=== PATIENT | female | born 1970 | race Caucasian/White ===

== ENCOUNTER 2019-08-19 08:32 | Emergency (ER) | payer BC, OTHER ==
[2019-08-19 08:42] VITALS: TEMP 98.5; BMI 25.0
--- NOTE | 2019-08-19 08:45 | PDOC ---
History of Present Illness - General Chief Complaint: Pain Stated Complaint: LEFT LOWER QUADRANT PAIN RADIATES TO BACK Time Seen by Provider: 08/19/19 08:42 - History of Present Illness Initial Comments: 08/19/19 08:57 Chief complaint: Abdominal pain HPI: Patient developed left flank and left lower quadrant pain this morning after awakening. There is also been nausea and retching. She has a history of left renal colic and recent lithotripsy. Review of systems: She admits to dark urine and dysuria. Denies chest pain, shortness of breath, hematemesis, melena, bloody stool, visual or focal neurologic symptoms, unsteadiness of gait, vaginal bleeding or discharge. Past medical history: Urinary tract calculi, high blood pressure. Mild asthma. Begun on prednisone yesterday by primary physician. Also on losartan Social/family history reviewed and noncontributory. No tobacco drugs or alcohol. Stable home and family. Active and employed. Physical exam: Alert and oriented well-developed well-nourished significant pain suggestive of renal colic. Cooperative Afebrile, vital signs normal except for mildly elevated blood pressure No pallor or icterus. PERRLA, ENT clear Neck supple without bruit mass or nodes Chest clear with full breath sounds bilaterally CV S1-S2 normal without murmur rub or gallop pulses full and symmetric no JVD or edema no bruits Abdomen nondistended. Bowel sounds normal. Soft without mass tenderness organomegaly. No CVAT Neurological intact Skin clear, no rash, adequate turgor and wet mucous membranes Extremities no CCE Impression: Left flank and left lower quadrant pain in a woman with recent lithotripsy and history of left renal colic, probably recurrent. Other possibilities are diverticulitis, colitis, gastroenteritis, ruptured ovarian cyst, with without ectopic Plan: Urinalysis, urine , CBC and chemistries, IV fluids, antiemetics, analgesics, and further evaluation and treatment depending on results of studies. Past History - Past Medical History Allergies/Adverse Reactions: Allergies Allergy/AdvReac Type Severity Reaction Status Date / Time No Known Allergies Allergy Verified 08/19/19 08:33 Home Medications: Ambulatory Orders Ibuprofen 800 mg PO Q4HWA PRN #20 tablet 08/19/19 Losartan Potassium 1 tab PO DAILY 08/19/19 Prednisone [Deltasone] 20 mg PO DAILY 08/19/19 Asthma: Yes COPD: No HTN: Yes Kidney Stones: Yes - Surgical History Cholecystectomy: Yes - Psycho Social/Smoking Cessation Hx Smoking History: Never smoked Have you smoked in the past 12 months: No Information on smoking cessation initiated: No Hx Alcohol Use: No Drug/Substance Use Hx: No Substance Use Type: None *Physical Exam - Vital Signs Last Vital Signs Temp Pulse Resp BP Pulse Ox 98.5 F 77 16 175/97 H 100 08/19/19 08:33 08/19/19 08:33 08/19/19 08:33 08/19/19 08:33 08/19/19 08:33 ED Treatment Course - LABORATORY CBC & Chemistry Diagram: 08/19/19 09:00 08/19/19 09:00 Medical Decision Making - Medical Decision Making 08/19/19 11:23 White blood count is 18,000. Remainder of blood work without significant abnormalities. Urinalysis shows 3+ blood but only 2-5 red cells, 0-2 white cells, no nitrites. No suggestion of superimposed infection Ultrasound shows mild left hydronephrosis, nonobstructing stones in the kidneys. The elevated white count is most likely due to pain, but other intra-abdominal infection is possible. No current lab results or results of imaging studies were available despite review of the patient's records online. 08/19/19 11:24 08/19/19 12:01 CT reveals multiple nonobstructing stones in the left kidney, a 6.3 mm stone in the distal ureter with hydronephrosis and hydroureter, ass well as a stone in the bladder. Patient's pain is controlled. She is resting comfortably. She will be discharged on pain medication as needed. She and her were instructed to return to the emergency room if the pain is severe and uncontrolled, otherwise follow-up with her urologist within 1 week. Also return if there is fever/chills, dysuria that could be a sign of infection. Urine culture from today is pending, but no antibiotics are prescribed immediately, since the urinalysis has no white cells and is nitrite negative. Patient ambulatory and discharged with , in no severe pain or other distress, to follow-up as directed 08/19/19 12:09 Discharge - Discharge Information Problems reviewed: Yes Clinical Impression/Diagnosis: Renal colic on left side Condition: Improved Disposition: HOME - Admission No - Additional Discharge Information Prescriptions: Ibuprofen 800 mg PO Q4HWA PRN #20 tablet PRN Reason: Pain - Follow up/Referral - Patient Discharge Instructions Patient Printed Discharge Instructions: DI for Kidney Stones Additional Instructions: Return to the emergency room if pain is severe and uncontrolled with medication Return to the emergency room if there is fever or chills, increased back pain, increased pain or difficulty with urination. This may be a sign of infection developing. At present, there is no evidence of infection If symptoms resolve, see your urologist within 1 week for follow-up. - Post Discharge Activity
[2019-08-19] MEDS ORDERED: ONDANSETRON 4 MG/2 ML VIAL IVPB ONE (08:47)
[2019-08-19] MEDS ORDERED: KETOROLAC TROMETHAMINE 30 MG/1 ML VIAL IVPUSH ONE (08:47)
[2019-08-19] MEDS ORDERED: SODIUM CHLORIDE 1,000 ML IV STA (08:47)
[2019-08-19] MEDS ORDERED: ONDANSETRON 4 MG/2 ML VIAL ONE (09:00)
[2019-08-19] MEDS ORDERED: KETOROLAC TROMETHAMINE 30 MG/1 ML VIAL ONE (09:00)
[2019-08-19 09:18] LABS: BASO % 0.4 % (0-2.0); EOS % 0.6 % (0-4.5); HEMATOCRIT 42.1 % (32.4-45.2); HEMOGLOBIN 13.8 GM/dl (10.7-15.3); LYMPH % 9.5 % (8-40); MCH 28.7 pg (25.7-33.7); MCHC 32.8 g/dl (32.0-36.0); MEAN CELL VOLUME 87.6 fl (80-96); MEAN PLT VOLUME 9.5 fl (7.5-11.1); MONO % 3.6 % (3.8-10.2); NEUT % 85.9 % (42.8-82.8); PLATELET COUNT 351 K/MM3 (134-434); WHITE BLOOD COUNT 18.2 K/mm3 (4.0-10.8)
[2019-08-19 09:24] LABS: ALBUMIN 4.7 g/dl (3.4-5.0); BILIRUBIN,TOTAL 0.8 mg/dl (0.2-1); CALCIUM 10.1 mg/dl (8.5-10); CREATININE 0.8 mg/dl (0.55-1.3); POTASSIUM 3.9 mmol/L (3.5-5.1); TOT PROT 8.3 g/dl (6.4-8.2)
[2019-08-19 09:38] LABS: CALCIUM OXALATE CRYSTALS FEW /hpf (NONE SEEN); EPITHELIAL CELLS FEW /hpf
[2019-08-19 12:15] VITALS: BP 164/107; PULSE 80
== END 2019-08-19 12:24 | disposition home or self-care (01) ==
LOC: FER 08:32
PROC: 3E0333Z Introduction of Anti-inflammatory into Peripheral Vein, Percutaneous Approach (ICD-10-PCS; principal; 2019-08-19)
PROC: 3E0337Z Introduction of Electrolytic and Water Balance Substance into Peripheral Vein, Percutaneous Approach (ICD-10-PCS; 2019-08-19)
PROC: 3E033GC Introduction of Other Therapeutic Substance into Peripheral Vein, Percutaneous Approach (ICD-10-PCS; 2019-08-19)
DX: N13.2 Hydronephrosis with renal and ureteral calculous obstruction (principal); I10 Essential (primary) hypertension
CPT/HCPCS: 36415; 74176-TC; 76775-TC; 80053; 81003; 81015; 84703; 85025; 87086; 99284-25; J7030

== ENCOUNTER 2020-07-19 17:06 | Emergency (ER) | payer OTHER ==
--- OUTSIDE RECORDS SUMMARY | 2020-07-19 17:14 | XMS ---
:1970 Author Organization [facility] Support Name Relationship Address Phone ST. KALA DAVILA Unavailable [address] [place] [address] MIGUEL COOPER [address] [facility] [place] [address] Re-disclosure Warning The records that you are about to access may contain information from federally- assisted alcohol or drug abuse programs. If such information is present, then the following federally mandated warning applies: This information has been disclosed to you from records protected by federal confidentiality rules (42 CFR part 2). The federal rules prohibit you from making any further disclosure of this information unless further disclosure is expressly permitted by the written consent of the person to whom it pertains or as otherwise permitted by 42 CFR part 2. A general authorization for the release of medical or other information is NOT sufficient for this purpose. The Federal rules restrict any use of the information to criminally investigate or prosecute any alcohol or drug abuse patient.The records that you are about to access may contain highly sensitive health information, the redisclosure of which is protected by Article 27-F of the [facility] Public Health law. If you continue you may haveaccess to information: Regarding HIV / AIDS; Provided by facilities licensed or operated by the [facility] Office of Mental Health; or Provided by the [facility] Office for People With Developmental Disabilities. If such information is present, then the following [facility] mandated warning applies: This information has been disclosed to you from confidential records which are protected by state law. State law prohibits you from making any further disclosure of this information without the specific written consent of the person to whom it pertains, or as otherwise permitted by law. Any unauthorized further disclosure in violation of state law may result in a fine or group home sentence or both. A general authorization for the release of medical or other information is NOT sufficient authorization for further disclosure. Insurance Providers Payer name Policy type Policy ID Covered Covered green party's Policy P oliver / Coverage green party ID relationship to Gonzalez Inf ormation type gonzalez SELF PAY SP INSURANCE [facility] [id number] [place] [id number] PLANS EPO [id number] S [id number]
[2020-07-19 17:22] VITALS: BP 141/96; PULSE 87; TEMP 98.8; BMI 27.2
--- NOTE | 2020-07-19 17:30 | PDOC ---
History of Present Illness - General History Source: Patient Exam Limitations: No Limitations - History of Present Illness Initial Comments: 07/19/20 17:47 50F with PMH of asthma, HTN, kidney stones s/p ureteral stent, uterine fibroids s/p hysterectomy, and choleycystectomy presents to the ED with left sided abd pain. It started 1 week prior, and was seen by PCP - labs and UA wnl at that time. She was sent to her urologist, and CT abdomen was done yesterday, reported to be normal. She was referred to GI, who suggested colonoscopy at the end of the month. Today the pt developed nausea with vomiting, and PCP referred her to the ED. The pain radiates to left back and constant. Denies diarrhea, constipation, hematochezia, or dysuria. PMH: as in HPI SH: as in HPI Meds: losartan, albuterol Allergies: NKDA Tob/Etoh/Rec drugs: neg x3 Urologist: Dr. Kurt GOMEZ GENERAL/CONSTITUTIONAL: No fever or chills. No weakness. CARDIOVASCULAR: No chest pain or shortness of breath RESPIRATORY: No cough, wheezing, or hemoptysis. GASTROINTESTINAL: +nausea, vomiting; no diarrhea or constipation GENITOURINARY: No dysuria, frequency, or change in urination. ENDOCRINE: No increased thirst. No abnormal weight change ALLERGIC/IMMUNOLOGIC: No hives or skin allergy. PE GENERAL: AOx3; no apparent distress HEART: RRR, normal S1/S2, no murmurs, rubs, or gallops. Peripheral pulses 2+ and equal bilaterally. LUNGS: No distress, speaks full sentences, CTA bilaterally ABDOMEN: Soft, nondistended. Minimal tenderness to palpation at LLQ. No guarding, no rebound. No masses. No CVA tenderness. EXTREMITIES: Normal inspection, Normal range of motion, no edema. SKIN: Warm, Dry, normal turgor. No rashes or lesions noted Assessment and Plan 1. ovarian cyst/torsion 2. kidney stone Ankush Davila, PGY1 Emergency Medicine <Ankush Davlia - Last Filed: 07/19/20 18:38> <Nereida yLles - Last Filed: 07/19/20 19:02> - General Chief Complaint: Pain Stated Complaint: LEFT ABDOMINAL PAIN WITH NAUSEA Time Seen by Provider: 07/19/20 17:30 Past History - Medical History Asthma: Yes COPD: No HTN: Yes Kidney Stones: Yes - Surgical History Cholecystectomy: Yes - Reproductive History Is Patient Now?: No - Psycho-Social/Smoking History Smoking History: Never smoked Have you smoked in the past 12 months: No Information on smoking cessation initiated: No - Substance Abuse Hx (Audit-C & DAST Scrn) How often the patient has a drink containing alcohol: Never Score: In Men: 4 or > Positive; In Women: 3 or > Positive: 0 Screen Result (Pos requires Nsg. Audit-10AR): Negative In the last yr the pt used illegal drug/Rx for NonMed reason: No Score: Yes response is considered Positive: 0 Screen Result (Positive result requires Nsg. DAST-10): Negative <Ankush Davila - Last Filed: 07/19/20 18:38> <Nereida Lyles - Last Filed: 07/19/20 19:02> - Medical History Allergies/Adverse Reactions: Allergies Allergy/AdvReac Type Severity Reaction Status Date / Time No Known Allergies Allergy Verified 07/19/20 17:09 Home Medications: Ambulatory Orders Losartan Potassium 1 tab PO DAILY 08/19/19 Ibuprofen 600 mg PO QID PRN #20 tablet 07/19/20 Nitrofurantoin Monohyd/M-Cryst [Macrobid -] 100 mg PO BID #10 capsule 07/19/20 *Physical Exam - Vital Signs Last Vital Signs Temp Pulse Resp BP Pulse Ox 98.8 F 87 16 141/96 99 07/19/20 17:08 07/19/20 17:08 07/19/20 17:08 07/19/20 17:08 07/19/20 17:08 <Ankush Davila - Last Filed: 07/19/20 18:38> - Vital Signs Last Vital Signs Temp Pulse Resp BP Pulse Ox 98.8 F 87 16 141/96 99 07/19/20 17:08 07/19/20 17:08 07/19/20 17:08 07/19/20 17:08 07/19/20 17:08 <Nereida Lyles - Last Filed: 07/19/20 19:02> ED Treatment Course - LABORATORY CBC & Chemistry Diagram: 07/19/20 17:50 10/08/20 17:50 <Ankush Davila - Last Filed: 07/19/20 18:38> - LABORATORY CBC & Chemistry Diagram: 07/19/20 17:50 07/19/20 17:50 - ADDITIONAL ORDERS Additional order review: Laboratory Results 07/19/20 07/19/20 17:50 17:50 Sodium 137 Potassium 4.0 Chloride 100 Carbon Dioxide 26 Anion Gap 11 BUN 14.0 Creatinine 0.7 Est GFR (CKD-EPI)AfAm 117.09 Est GFR (CKD-EPI)NonAf 101.02 Random Glucose 152 H Calcium 9.4 Total Bilirubin 0.9 AST 30 ALT 28 Alkaline Phosphatase 96 Total Protein 8.1 Albumin 4.6 Urine Color Yellow Urine Appearance Clear Urine pH 6.0 Urine Protein Negative Urine Glucose (UA) Negative Urine Ketones Negative Urine Blood Negative Urine Nitrite Negative Urine Bilirubin Negative Urine Urobilinogen 0.2 Ur Leukocyte Esterase 2+ Urine RBC 0-2 Urine WBC >100 Ur Transition Epith Cell Few Urine Bacteria Moderate 07/19/20 17:50 RBC 4.97 MCV 89.0 MCHC 32.6 RDW 12.3 MPV 9.1 Neutrophils % 75.2 Lymphocytes % 17.3 Monocytes % 3.8 Eosinophils % 3.3 Basophils % 0.4 - Medications Given in the ED: ED Medications Discontinued Medications Generic Name Dose Route Start Last Admin Trade Name Demi PRN Reason Stop Dose Admin Acetaminophen 1,000 mg 07/19/20 17:45 07/19/20 18:00 Tylenol - PO 07/19/20 17:46 1,000 mg ONCE ONE Administration Ondansetron HCl 4 mg 07/19/20 17:45 07/19/20 18:01 Zofran Injection IVPUSH 07/19/20 17:46 4 mg ONCE ONE Administration <Nereida Lyles - Last Filed: 07/19/20 19:02> Medical Decision Making - Medical Decision Making 07/19/20 18:07 50F presents to ED with L sided abd pain radiating to left back, with nausea/vomiting today. On exam, she had mild LLQ abdominal pain. -> will get TVUS to eval for ovarian cyst/torsion (pt has hx/o left ovarian cyst), will get kidney US to eval for hydronephrosis. 07/19/20 18:36 CBC and CMP unremarkable. +leukocyte esterase in UA. 07/19/20 18:37 Pending kidney and transvaginal ultrasound. Signed out to night team. <Ankush Davila - Last Filed: 07/19/20 18:38> Discharge - Discharge Information Problems reviewed: Yes <Ankush Davila - Last Filed: 07/19/20 18:38> - Discharge Information Problems reviewed: Yes - Admission No <Nereida Lyles - Last Filed: 07/19/20 19:02> - Discharge Information Clinical Impression/Diagnosis: Abdominal pain Qualifiers: Abdominal location: unspecified location Qualified Code(s): R10.9 - Unspecified abdominal pain Ovarian cyst Qualifiers: Laterality: left Qualified Code(s): N83.202 - Unspecified ovarian cyst, left side UTI (urinary tract infection) Qualifiers: Urinary tract infection type: site unspecified Hematuria presence: without hematuria Qualified Code(s): N39.0 - Urinary tract infection, site not specified Condition: Stable Disposition: HOME - Additional Discharge Information Prescriptions: Ibuprofen 600 mg PO QID PRN #20 tablet PRN Reason: Pain Nitrofurantoin Monohyd/M-Cryst [Macrobid -] 100 mg PO BID #10 capsule - Follow up/Referral Referrals: [facility] [Provider Group] Kinjal Quick MD [Staff Physician] - Ronna Cardona MD [Staff Physician] - Arleen Blakely MD [Staff Physician] - - Patient Discharge Instructions Patient Printed Discharge Instructions: DI for Urinary Tract Infection (UTI), DI for Ovarian Cyst Additional Instructions: 1) Please follow-up with your primary care doctor in the next 1-2 days. Please call tomorrow for for any urgent issues. Also see a specialist wound care for your ovarian cyst. You also have an uncomplicated urinary tract infection, follow-up on urine culture. You will be treated with antibiotics. 2) You were given a copy of the tests performed today. Please bring the results with you and review them with your primary care doctor. Your laboratory / imaging results were normal, have a 2.3 x 2 cm left-sided ovarian cyst and urinary tract infection Your other laboratory results are within normal limits. 3) If you have any worsening of symptoms or any other concerns please return to the ED immediately. Return if worsening symptoms including fevers, headache, vomiting, visual or hearing disturbances, abdominal pain, chest pain, shortness of breath, syncope, dehydration, inability to take things by mouth/vomiting, altered mental status, vaginal bleeding or worsening concerning symptoms. 4) Please continue taking your home medications as directed. your medications on discharge include_Macrobid twice a day x5 days for the urinary tract infection. side effects may include upset stomach, abdominal pain, vomiting, or diarrhea. do not drink alcohol with your medications. You can take ibuprofen or Tylenol as needed for the pain. Stay well hydrated and rest adequately. Make an appointment. If you cannot follow-up with your primary care doctor please return to the ED
[2020-07-19] MEDS ORDERED: ONDANSETRON 4 MG/2 ML VIAL IVPUSH ONE (17:45)
[2020-07-19] MEDS ORDERED: ACETAMINOPHEN 500 MG TABLET (FP) PO ONE (17:45)
[2020-07-19] MEDS ORDERED: ONDANSETRON 4 MG/2 ML VIAL ONE (17:56)
[2020-07-19] MEDS ORDERED: ACETAMINOPHEN 500 MG TABLET (FP) ONE (17:56)
[2020-07-19 18:24] LABS: BASO % 0.4 % (0-2.0); EOS % 3.3 % (0-4.5); HEMATOCRIT 44.3 % (32.4-45.2); HEMOGLOBIN 14.4 GM/dl (10.7-15.3); LYMPH % 17.3 % (8-40); MCHC 32.6 g/dl (32.0-36.0); MEAN PLT VOLUME 9.1 fl (7.5-11.1); MONO % 3.8 % (3.8-10.2); NEUT % 75.2 % (42.8-82.8); PLATELET COUNT 307 K/MM3 (134-434); RBC 4.97 M/mm3 (3.60-5.2); RDW 12.3 % (11.6-15.6); WHITE BLOOD COUNT 8.5 K/mm3 (4.0-10.8)
--- NOTE | 2020-07-19 18:27 | PDOC ---
Attending Attestation - Resident Resident Name: Ankush Davila - ED Attending Attestation I have performed the following: I have examined & evaluated the patient, The case was reviewed & discussed with the resident, I agree w/resident's findings & plan - HPI HPI: 07/19/20 18:25 50F with PMH of asthma, HTN, kidney stones s/p ureteral stent, uterine fibroids s/p hysterectomy, and choleycystectomy presents to the ED with left sided abd pain. It started 1 week prior, and was seen by PCP - labs and UA wnl at that time. She was sent to her urologist, and CT abdomen was done yesterday, reported to be normal. She was referred to GI, who suggested colonoscopy at the end of the month. Today the pt developed nausea with vomiting, and PCP referred her to the ED. The pain radiates to left back and constant. Denies diarrhea, constipation, hematochezia, or dysuria. - Physicial Exam PE: 07/19/20 18:25 Agree with the resident's HPI and PE as documented in the electronic medical record. NAD, well appearing, EOMI, PERRL, nl conjunctiva, anicteric; neck supple. lungs clear, RRR, abdomen soft left lower quadrant/pelvic tenderness, no rebound, guarding. Back nontender. No CVA tenderness. JURADO x4, no focal neuro deficits. No peripheral edema. normal color for ethnicity, WWP. - Medical Decision Making 07/19/20 18:25 Vital Signs Temp Pulse Resp BP Pulse Ox 98.8 F 87 16 141/96 99 07/19/20 17:08 07/19/20 17:08 07/19/20 17:08 07/19/20 17:08 07/19/20 17:08 DDx abdominal pain: Renal colic, biliary colic, metabolic/electrolyte derangements. GERD, PUD, esophageal spasm, pancreatitis, hepatitis, constipation, colitis, gastroenteritis, cholecystitis, UTI, pyelonephritis, ileus, SBO, medication side effect, hernia, appendicitis, diverticulitis. msk strain, mesenteric adenitis, psoas abscess. - no RLQ pain to suggest appy. does not appear septic or obstructed - more left pelvic tenderness/LLQ. no CVAT no bleeding had CT done about 2 days ago with urologist, reportedly unremarkable for stones she had also seen her PMD within the week, unremarkable labs/UA, referred to urology and GI for further management, yet to see GI for colonoscopy. vitals reviewed wnl, reassuring will get labs and lytes, UA ultrasound kidneys and pelvis to eval for hydro, given her h/o kidney stones and ovarian/cyst/torsion, also has h/o left ovarian cyst. 07/19/20 18:31 UA prelim with 2+ leuk esterase - f/u urine culture, can start with macrobid for uncomplicated cystitis. labs and lytes are wnl, reassuring US with Left ovarian cyst measuring 2.3 x 2 cm, without intraluminal debris, nodularity or septation. No evidence of torsion. Patient clinically does not present with ovarian torsion. No hydronephrosis with the kidneys Kos unlikely to be renal colic there may be small nonobstructing left sided renal calculi. Pt to be discharged in stable condition. Patient made aware of clinical impression, treatment recommendations and disposition plan, return precautions discussed (including but not limited to new or persistent/worsening symptoms, pain, fevers, or signs of infection, chest pain, respiratory distress, inability to tolerate oral intake, dehydration, syncope, or neurologic changes). Follow up with PMD and/or GI specialist as recommended, follow up information provided, take medications as instructed for duration of time. continue with supportive care, avoid triggers and precipitants. All questions answered to patient's satisfaction and expressed understanding and comfort with this. At the time of discharge, the patient is alert, clinically improved, tolerating po and verbalizes understanding of instructions, satisfied with the care received and felt comfortable with the plan. Patient does not suffer from an acute life- threatening medical condition at this time and is safe for outpatient follow- up. 07/19/20 18:55 07/19/20 18:57 07/19/20 19:01 07/19/20 19:02 Discharge - Discharge Information Problems reviewed: Yes Clinical Impression/Diagnosis: Abdominal pain Qualifiers: Abdominal location: unspecified location Qualified Code(s): R10.9 - Unspecified abdominal pain Ovarian cyst Qualifiers: Laterality: left Qualified Code(s): N83.202 - Unspecified ovarian cyst, left side UTI (urinary tract infection) Qualifiers: Urinary tract infection type: site unspecified Hematuria presence: without hematuria Qualified Code(s): N39.0 - Urinary tract infection, site not specified Condition: Stable Disposition: HOME - Admission No - Additional Discharge Information Prescriptions: Ibuprofen 600 mg PO QID PRN #20 tablet PRN Reason: Pain Nitrofurantoin Monohyd/M-Cryst [Macrobid -] 100 mg PO BID #10 capsule - Follow up/Referral Referrals: [facility] [Provider Group] Ronna Cardona MD [Staff Physician] - Arleen Blakely MD [Staff Physician] - Kinjal Quick MD [Staff Physician] - - Patient Discharge Instructions Patient Printed Discharge Instructions: DI for Urinary Tract Infection (UTI), DI for Ovarian Cyst Additional Instructions: 1) Please follow-up with your primary care doctor in the next 1-2 days. Please call tomorrow for for any urgent issues. Also see a scabbler for your ovarian cyst. You also have an uncomplicated urinary tract infection, follow-up on urine culture. You will be treated with antibiotics. 2) You were given a copy of the tests performed today. Please bring the results with you and review them with your primary care doctor. Your laboratory / imaging results were normal, have a 2.3 x 2 cm left-sided ovarian cyst and urinary tract infection Your other laboratory results are within normal limits. 3) If you have any worsening of symptoms or any other concerns please return to the ED immediately. Return if worsening symptoms including fevers, headache, vomiting, visual or hearing disturbances, abdominal pain, chest pain, shortness of breath, syncope, dehydration, inability to take things by mouth/vomiting, altered mental status, vaginal bleeding or worsening concerning symptoms. 4) Please continue taking your home medications as directed. your medications on discharge include_Macrobid twice a day x5 days for the urinary tract infection. side effects may include upset stomach, abdominal pain, vomiting, or diarrhea. do not drink alcohol with your medications. You can take ibuprofen or Tylenol as needed for the pain. Stay well hydrated and rest adequately. Make an appointment. If you cannot follow-up with your primary care doctor please return to the ED - Post Discharge Activity
[2020-07-19 18:31] LABS: ALBUMIN 4.6 g/dl (3.4-5.0); BILIRUBIN,TOTAL 0.9 mg/dl (0.2-1); CALCIUM 9.4 mg/dl (8.5-10); CREATININE 0.7 mg/dl (0.55-1.3); TOT PROT 8.1 g/dl (6.4-8.2)
[2020-07-19 19:01] LABS: EPITHELIAL CELLS FEW /hpf
== END 2020-07-19 19:15 | disposition home or self-care (01) ==
LOC: FER 17:06
PROC: 3E033GC Introduction of Other Therapeutic Substance into Peripheral Vein, Percutaneous Approach (ICD-10-PCS; principal; 2020-07-19)
DX: R10.9 Unspecified abdominal pain (principal); N83.202 Unspecified ovarian cyst, left side; N39.0 Urinary tract infection, site not specified
CPT/HCPCS: 36415; 76775-TC; 76830-TC; 80053; 81003; 81015; 85025; 87086; 99285-25

== ENCOUNTER 2023-09-15 07:30 | Emergency (ER) | payer OTHER ==
[2023-09-15] MEDS ORDERED: ACETAMINOPHEN 1000 MG/100 ML BAG IVPB ONE (07:39)
[2023-09-15] MEDS ORDERED: METOCLOPRAMIDE HCL INJECTION 10 MG/2 ML VIAL IVPUSH ONE (07:39)
[2023-09-15] MEDS ORDERED: SODIUM CHLORIDE 0.9% 1000 ML INFUS.BAG IV ONE (07:40)
[2023-09-15 07:41] VITALS: RESP 16; TEMP 97.8; BMI 25.4
[2023-09-15] MEDS ORDERED: METOCLOPRAMIDE HCL INJECTION 10 MG/2 ML VIAL ONE (07:48)
[2023-09-15] MEDS ORDERED: ACETAMINOPHEN INJECTION 100 ML IVPB ONE (07:49)
[2023-09-15] MEDS ORDERED: KETOROLAC TROMETHAMINE 15 MG/ML VIAL IVPUSH ONE (07:50)
[2023-09-15] MEDS ORDERED: KETOROLAC TROMETHAMINE 15 MG/ML VIAL ONE (07:53)
[2023-09-15 08:26] LABS: HEMATOCRIT 39.6 % (32.4-45.2); HEMOGLOBIN 13.3 G/dL (10.7-15.3); MCHC 33.6 g/dl (32.0-36.0); MEAN CELL VOLUME 86.3 fl (80-96); MEAN PLT VOLUME 8.6 fl (7.5-11.1); PLATELET COUNT 257.3 10^3/uL (134-434); RBC 4.59 10^6/uL (3.60-5.2); RDW 13.5 % (11.6-15.6); WHITE BLOOD COUNT 6.2 10^3/uL (4.0-10.8)
[2023-09-15 08:38] LABS: ALBUMIN 4.5 g/dl (3.4-5.0); BILIRUBIN,TOTAL 0.8 mg/dl (0.2-1); CALCIUM 9.5 mg/dl (8.5-10.1); CREATININE 0.8 mg/dl (0.6-1.3); POTASSIUM 4.3 mmol/L (3.5-5.1); TOT PROT 7.3 g/dl (6.4-8.2)
[2023-09-15 09:11] LABS: PLATELET ESTIMATE ADEQUATE
[2023-09-15 09:15] VITALS: BP 143/96; PULSE 78
== END 2023-09-15 09:49 | disposition home or self-care (01) ==
LOC: FER 07:30
PROC: 3E033NZ Introduction of Analgesics, Hypnotics, Sedatives into Peripheral Vein, Percutaneous Approach (ICD-10-PCS; principal; 2023-09-15)
PROC: 3E033GC Introduction of Other Therapeutic Substance into Peripheral Vein, Percutaneous Approach (ICD-10-PCS; 2023-09-15)
DX: R51.9 Headache, unspecified (principal); R11.0 Nausea
CPT/HCPCS: 36415; 80053; 83735; 85027; 99284-25

== ENCOUNTER 2023-09-15 23:50 | Emergency (ER) | payer OTHER ==
[2023-09-15 23:59] VITALS: BP 169/100; PULSE 78; RESP 16; TEMP 98.3; BMI 26.4
== END 2023-09-16 00:21 | disposition home or self-care (01) ==
LOC: FER 23:50
DX: I10 Essential (primary) hypertension (principal)
CPT/HCPCS: 99283-25